=== PATIENT | male | born 2005 | race Caucasian/White ===

== ENCOUNTER 2025-01-25 19:25 | Emergency (ER) | payer OTHER ==
[~2025-01-25] VITALS: Ht 175.3 cm; Wt 89.0 kg
[2025-01-25 19:36] VITALS: BP 124/82; PULSE 112; RESP 16; TEMP 36.7; O2SAT 100
== END 2025-01-25 20:30 | disposition left against medical advice (07) ==
LOC: ER 19:25
DX: F10.129 Alcohol abuse with intoxication, unspecified (principal); Y90.9 Presence of alcohol in blood, level not specified